=== PATIENT | male | born 2000 | race African-American/Black ===

== ENCOUNTER 2025-03-11 23:25 | Emergency (ER) | payer OTHER ==
[~2025-03-11] VITALS: Ht 170.2 cm; Wt 69.0 kg
[2025-03-11 23:35] VITALS: TEMP 36.8; O2SAT 99
[2025-03-12] MEDS: LIDOCAINE HCL 1% 20ML VIAL INFIL ONE (04:10)
[2025-03-12] MEDS: KETOROLAC 15MG/ML VIAL IM ONE (04:10)
[2025-03-12] MEDS: TETANUS, DIPHTHERIA, PERTUSSIS VAC/PF 0.5ML (>10YR OLD) IM ONE (04:14)
[2025-03-12] MEDS ORDERED: NAPR-1176 MT (05:27)
[2025-03-12] MEDS ORDERED: CEPH500C2 MT (05:28)
[2025-03-12 06:05] VITALS: BP 118/60; PULSE 60; RESP 16; O2SAT 100
== END 2025-03-12 06:11 | disposition home or self-care (01) ==
LOC: ER 23:25
DX: S61.012A Laceration without foreign body of left thumb without damage to nail, initial encounter (principal); Z79.1 Long term (current) use of non-steroidal anti-inflammatories (NSAID); Z79.899 Other long term (current) drug therapy; W26.0XXA Contact with knife, initial encounter; Y93.89 Activity, other specified; Y92.89 Other specified places as the place of occurrence of the external cause; Y99.8 Other external cause status
CPT/HCPCS: 12002; 99284; 73130; 90715; 90471; 96372; J1885; J2003; Z7610